=== PATIENT | female | born 1960 | race Caucasian/White ===

== ENCOUNTER 2016-10-30 07:32 | Emergency (ER) | payer OTHER ==
[~2016-10-30] VITALS: Ht 157.5 cm; Wt 114.0 kg
[2016-10-30 07:40] VITALS: Ht 157.5 cm; Wt 114.0 kg
[2016-10-30] MEDS ORDERED: METHYLPREDNISOLONE 125 MG VIAL IV STA (07:56)
[2016-10-30] MEDS ORDERED: ALBUT/IPRATROP 3MG/0.5MG NEB 3 ML VIAL INH STA (07:56)
[2016-10-30] MEDS ORDERED: ALBUT/IPRATROP 3MG/0.5MG NEB 3 ML VIAL ONE (07:57)
[2016-10-30] MEDS ORDERED: ALBUT/IPRATROP 3MG/0.5MG NEB 3 ML VIAL INH ONE (08:00)
[2016-10-30] MEDS ORDERED: ROSU40TA PO (08:02)
[2016-10-30] MEDS ORDERED: LEVO125T72 PO (08:02)
[2016-10-30 08:09] VITALS: PULSE 113; O2SAT 95
--- NOTE | 2016-10-30 08:13 | EMERGENCY ROOM VISIT NOTE ---
History Report prepared by Joe: Quincy Yanez Under the Supervision of: Dr. Hilda Flores M.D. First contact with patient: 07:46 Chief Complaint: RESPIRATORY PROBLEMS Stated Complaint: HAVING TROUBLE BREATHING History of Present Illness The patient is a 56 year old female who presents to the Emergency Room with complaints of worsening respiratory problems that occurred last night. The patient is having moderate shortness of breath currently. She has a past medical history of asthma. She states this is an exacerbation episode of her asthma. Last night, she used her inhaler with mild relief. She also used it this morning as well. She states that it does help, but it wears off quickly. She denies any fever or abdominal pain. She has bilateral pedal edema that is baseline. A couple weeks ago, she saw a television camera operator who gave her a chest x- ray that came back normal. She has never been intubated before. She does not have diabetes. She does not have any personal history of congestive heart failure, but she does have a family history of this condition. Source of History: patient Onset: last night Position: other (lungs) Symptom Intensity: moderate Quality: other (respiratory problems) Timing: worsening Associated Symptoms: + SOB, No abdominal pain, No fevers Note: She has a baseline bilateral pedal edema. Review of Systems See HPI for pertinent positives & negatives. A total of 10 systems reviewed and were otherwise negative. Past Medical & Surgical Medical Problems: (1) Asthma Family History Omitted secondary to age. Social History Smoking Status: Never Smoker Smokeless Tobacco Use: No Drug Use: none Marital Status: Housing Status: lives with significant other Occupation Status: employed Current/Historical Medications Scheduled Ergocalciferol (Vitamin D 67371 Unit), 50,000 UNIT PO WK Fluticasone Prop/Salmeterol (Advair Diskus 100/50 60 Dose), 1 PUFF INH DAILY Furosemide (Lasix), Unknown Dose PO WK Levothyroxine Sodium (Synthroid), 125 MCG PO DAILY Potassium Chloride (Micro-K Ext Rel), Unknown Dose PO WK Prednisone (Prednisone), Unknown Dose PO DAILY Sulfasalazine (Sulfazine Ec), 1,000 MG PO DAILY Scheduled PRN Albuterol Hfa (Ventolin Hfa), 1-2 PUFFS INH Q6H PRN for asthma symptoms Miscellaneous Medications Rosuvastatin Calcium (Crestor), 40 MG PO Allergies Coded Allergies: No Known Allergies (Unverified , 10/31/16) Physical Exam Vital Signs Date Time Temp Pulse Resp B/P Pulse Ox O2 Delivery O2 Flow Rate FiO2 10/30/16 11:32 101 22 137/88 96 10/30/16 10:05 108 21 130/75 94 Room Air 10/30/16 10:02 111 10/30/16 09:18 96 Room Air 10/30/16 09:04 108 22 143/86 100 Mask 6.0 10/30/16 08:45 95 Mask 6.0 10/30/16 08:12 115 10/30/16 08:09 113 26 95 Mask 6.0 10/30/16 08:01 115 24 171/110 96 Nebulizer 6.0 10/30/16 07:44 Nasal Cannula 2.0 10/30/16 07:40 36.5 122 26 149/89 93 Room Air Physical Exam Vital signs reviewed. General: Well-appearing obese female, with some acute discomfort. HEENT: No scleral icterus, PERRLA, neck supple. Atraumatic. Cardiovascular: Tachycardic rate with a normal rhythm, no extra sounds. Pulmonary: Diffuse wheezing, increased work of breathing. Abdomen: Soft, nontender, nondistended, positive bowel sounds. Musculoskeletal: Atraumatic, pitting bilateral lower extremity edema. Neurologic: Patient awake alert and oriented x 3, full strength in all 4 extremities. Cranial nerves 2 through 12 grossly intact. Skin: Warm, dry, no rash Medical Decision & Procedures ER Provider Diagnostic Interpretation: Radiology results as stated below per my review and radiologist interpretation: CHEST ONE VIEW PORTABLE CLINICAL HISTORY: asthma dyspnea COMPARISON STUDY: No previous studies for comparison. FINDINGS: The bones soft tissues and hemidiaphragms are normal. The cardiomediastinal silhouette is normal. The lungs are clear. The pulmonary vasculature is normal. Slight basilar interstitial prominence IMPRESSION: Slight basilar interstitial prominence. Study chest is otherwise negative Electronically signed by: Joel Adam M.D. 10/30/2016 8:16 AM Dictated Date/Time: 10/30/2016 8:15 AM CHEST CTA for PULMONARY ARTERIES CT DOSE: 627.54 mGy.cm HISTORY: Chest pain dyspnea TECHNIQUE: Multiaxial CT images of the chest were performed following the intravenous administration of contrast to evaluate the pulmonary arteries. Maximal intensity projection images were also obtained. COMPARISON STUDY: None. FINDINGS: There is a normal caliber thoracic aorta with no evidence for dissection. There is no evidence for pulmonary embolus. No pleural effusions. No pneumothorax. The liver and spleen are unremarkable. No mediastinal or hilar lymphadenopathy. The central airways are patent. The lungs are clear. IMPRESSION: No evidence for pulmonary embolus. Electronically signed by: Joel Adam M.D. 10/30/2016 10:57 AM Dictated Date/Time: 10/30/2016 10:55 AM Laboratory Results 10/30/16 08:40 Red Blood Count 4.54, Mean Corpuscular Volume 94.7, Mean Corpuscular Hemoglobin 31.3, Mean Corpuscular Hemoglobin Concent 33.0, Mean Platelet Volume 10.9, Neutrophils (%) (Auto) 55.0, Lymphocytes (%) (Auto) 25.1, Monocytes (%) (Auto) 10.8, Eosinophils (%) (Auto) 8.2, Basophils (%) (Auto) 0.6, Neutrophils # (Auto ) 4.29, Lymphocytes # (Auto) 1.96, Monocytes # (Auto) 0.84, Eosinophils # (Auto ) 0.64, Basophils # (Auto) 0.05 10/30/16 08:40 Test 10/30/16 08:40 10/30/16 08:42 White Blood Count 7.80 K/uL (4.8-10.8) Red Blood Count 4.54 M/uL (4.2-5.4) Hemoglobin 14.2 g/dL (12.0-16.0) Hematocrit 43.0 % (37-47) Mean Corpuscular Volume 94.7 fL (80-100) Mean Corpuscular Hemoglobin 31.3 pg (25-34) Mean Corpuscular Hemoglobin Concent 33.0 g/dl (32-36) Platelet Count 267 K/uL (130-400) Mean Platelet Volume 10.9 fL (7.4-10.4) Neutrophils (%) (Auto) 55.0 % Lymphocytes (%) (Auto) 25.1 % Monocytes (%) (Auto) 10.8 % Eosinophils (%) (Auto) 8.2 % Basophils (%) (Auto) 0.6 % Neutrophils # (Auto) 4.29 K/uL (1.4-6.5) Lymphocytes # (Auto) 1.96 K/uL (1.2-3.4) Monocytes # (Auto) 0.84 K/uL (0.11-0.59) Eosinophils # (Auto) 0.64 K/uL (0-0.5) Basophils # (Auto) 0.05 K/uL (0-0.2) RDW Standard Deviation 49.0 fL (36.4-46.3) RDW Coefficient of Variation 14.1 % (11.5-14.5) Immature Granulocyte % (Auto) 0.3 % Immature Granulocyte # (Auto) 0.02 K/uL (0.00-0.02) D-Dimer 810 ug/L FEU (0-500) Anion Gap 6.0 mmol/L (3-11) Est Creatinine Clear Calc Drug Dose 119.1 ml/min Estimated GFR () 116.2 Estimated GFR (Non- 100.3 BUN/Creatinine Ratio 23.4 (10-20) Calcium Level 9.8 mg/dl (8.5-10.1) Total Bilirubin 0.5 mg/dl (0.2-1) Direct Bilirubin 0.1 mg/dl (0-0.2) Aspartate Amino Transf (AST/SGOT) 15 U/L (15-37) Alanine Aminotransferase (ALT/SGPT) 21 U/L (12-78) Alkaline Phosphatase 85 U/L (45-117) Total Creatine Kinase 143 U/L (26-192) Creatine Kinase MB 2.2 ng/ml (0.5-3.6) Creatine Kinase MB Ratio 1.5 (0-3.0) Total Protein 7.5 gm/dl (6.4-8.2) Albumin 3.6 gm/dl (3.4-5.0) Bedside Troponin I 0.000 ng/ml (0-0.045) SB-Geq-F-Type Natriuretic Peptide 44 pg/ml (0-900) Laboratory results per my review. Medications Administered Medications (Trade) Dose Ordered Sig/Temo Route Start Time Stop Time Status Last Admin Dose Admin Albuterol/ Ipratropium (Duoneb) 3 ml NOW STAT INH 10/30/16 07:56 10/30/16 07:58 DC 10/30/16 08:00 3 ML Albuterol/ Ipratropium (Duoneb) 12 ml ONE ONCE INH 10/30/16 08:00 10/30/16 08:01 DC 10/30/16 08:01 12 ML Methylprednisolone Sodium Succinate (Solu-Medrol IV) 125 mg NOW STAT IV 10/30/16 07:56 10/30/16 07:58 DC 10/30/16 08:29 125 MG ECG Indication: SOB/dyspnea Rate (beats per minute): 115 Rhythm: sinus tachycardia Findings: no acute ischemic change, no ectopy ED Course 07: Past medical records reviewed. The patient was evaluated in room B12. A complete history and physical examination was performed. 0756: Ordered Solu-Medrol IV 125 mg IV, Duoneb 3 ml INH 0757: Ordered Duoneb 3 ml .ROUTE 0800: Ordered Duoneb 12 ml INH 0812: The patient is feeling better on the nebulizer. 1128: Upon reevaluation, the patient appeared to have improvement of her symptoms. I discussed findings with her. She verbalized agreement of the treatment plan. She was discharged home. Medical Decision Differential diagnosis: Etiologies such as infections, reactive airway disease, pneumonia, pneumothorax , COPD, CHF, cardiac ischemia, pulmonary embolism, musculoskeletal, gastrointestinal, as well as others were entertained. This patient was evaluated and appeared to be in some discomfort. IV access was obtained and laboratory work was drawn. The patient was placed on the astronomy department chair and found to be in a sinus tachycardia. Patient was given a DuoNeb treatment, she was given IV Solu-Medrol. Chest x-ray was obtained and reveals some interstitial prominence. Patient was given an hour-long DuoNeb treatment with good results. Laboratory work reveals a positive d-dimer, subsequent CT scan of the chest is negative for PE. She has symptoms the scattered wheezes after several hours of observation. At this time I feel the patient is stable. She would like to leave to go to her daughter's graduation. Patient was discharged with a prednisone taper. She has an albuterol inhaler. She will follow-up with her physician upon return home and will return to the ER for worsening of symptoms or any medical concerns. Impression Primary Impression: Asthma Scribe Attestation The scribe's documentation has been prepared under my direction and personally reviewed by me in its entirety. I confirm that the note above accurately reflects all work, treatment, procedures, and medical decision making performed by me. Departure Information Dispostion Home / Self-Care Referrals No Doctor Assigned Forms HOME CARE DOCUMENTATION FORM, IMPORTANT VISIT INFORMATION, WORK / SCHOOL INSTRUCTIONS Patient Instructions My [facility] Additional Instructions Diagnosis: Asthma exacerbation Prednisone 40 mg daily for 4 more days, 30 mg daily for 3 days, 20 mg daily for 2 more days, 10 mg daily for 2 days. Albuterol 2 puffs every 4 hours as needed for wheezing. Follow up with your doctor upon return home. Return to emergency for worsening of symptoms or any medical concerns. Problem Qualifiers Primary Impression: Asthma Asthma severity: mild intermittent Asthma complication type: with acute exacerbation Qualified Codes: J45.21 - Mild intermittent asthma with (acute) exacerbation
--- NOTE | 2016-10-30 08:17 | DIAGNOSTIC IMAGING REPORT ---
CHEST ONE VIEW PORTABLE CLINICAL HISTORY: asthma dyspnea COMPARISON STUDY: No previous studies for comparison. FINDINGS: The bones soft tissues and hemidiaphragms are normal. The cardiomediastinal silhouette is normal. The lungs are clear. The pulmonary vasculature is normal. Slight basilar interstitial prominence IMPRESSION: Slight basilar interstitial prominence. Study chest is otherwise negative Electronically signed by: Joel Adam M.D. 10/30/2016 8:16 AM Dictated Date/Time: 10/30/2016 8:15 AM
[2016-10-30] MEDS ORDERED: ERGO500037 PO (08:27)
[2016-10-30] MEDS ORDERED: SULF500T35 PO (08:27)
[2016-10-30] MEDS ORDERED: ADVIN10/60 INH (08:27)
[2016-10-30] MEDS ORDERED: VNTHFA/IN INH (08:27)
[2016-10-30] MEDS ORDERED: FURO-85 PO (08:27)
[2016-10-30] MEDS ORDERED: POTA10CA28 PO (08:27)
[2016-10-30 08:55] LABS: BASO % 0.6 %; BASO ABS # 0.05 K/uL (0-0.2); COMPLETE YES; EOS % 8.2 %; IG% 0.3 %; LYMPH % 25.1 %; LYMPH ABS # 1.96 K/uL (1.2-3.4); MEAN CELL VOLUME 94.7 fL (80-100); MEAN CORPUSCULAR HEMOGLOBIN 31.3 pg (25-34); MEAN PLATELET VOLUME 10.9 fL (7.4-10.4); MONO % 10.8 %; PLATELET COUNT 267 K/uL (130-400); RED BLOOD COUNT 4.54 M/uL (4.2-5.4)
[2016-10-30 09:22] LABS: BUN/CREATININE RATIO 23.4 (10-20); CALCIUM 9.8 mg/dl (8.5-10.1); CREATININE 0.63 mg/dl (0.60-1.20); POTASSIUM 3.9 mmol/L (3.5-5.1)
[2016-10-30 09:29] LABS: CKMB/CK RATIO 1.5 (0-3.0)
[2016-10-30] MEDS ORDERED: OPTIRAY 320 IV PRN (10:45)
--- NOTE | 2016-10-30 10:59 | DIAGNOSTIC IMAGING REPORT ---
CHEST CTA for PULMONARY ARTERIES CT DOSE: 627.54 mGy.cm HISTORY: Chest pain dyspnea TECHNIQUE: Multiaxial CT images of the chest were performed following the intravenous administration of contrast to evaluate the pulmonary arteries. Maximal intensity projection images were also obtained. COMPARISON STUDY: None. FINDINGS: There is a normal caliber thoracic aorta with no evidence for dissection. There is no evidence for pulmonary embolus. No pleural effusions. No pneumothorax. The liver and spleen are unremarkable. No mediastinal or hilar lymphadenopathy. The central airways are patent. The lungs are clear. IMPRESSION: No evidence for pulmonary embolus. Electronically signed by: Joel Adam M.D. 10/30/2016 10:57 AM Dictated Date/Time: 10/30/2016 10:55 AM
[2016-10-30] MEDS ORDERED: PRED10TA PO (11:24)
[2016-10-30 11:32] VITALS: BP 137/88; PULSE 101; O2SAT 96
[2016-10-31] MEDS ORDERED: PRD10 PO (04:53)
== END 2016-10-30 11:33 | disposition home or self-care (01) ==
LOC: C.EDB 07:34
DX: J45.21 Mild intermittent asthma with (acute) exacerbation (principal); R00.0 Tachycardia, unspecified; R60.0 Localized edema; Z79.899 Other long term (current) drug therapy

== ENCOUNTER 2016-10-31 04:11 | Emergency (ER) | payer OTHER ==
[~2016-10-31] VITALS: Ht 157.5 cm; Wt 106.0 kg
[~2016-10-31 04:11] MED LIST: ADVIN10/60 INH; ERGO500037 PO; FURO-85 PO; LEVO125T72 PO; POTA10CA28 PO; PRED10TA PO; ROSU40TA PO; SULF500T35 PO; VNTHFA/IN INH
[2016-10-31 04:13] VITALS: TEMP 36.3; Ht 157.5 cm; Wt 106.0 kg
[2016-10-31 04:23] VITALS: O2SAT 96
[2016-10-31] MEDS ORDERED: METHYLPREDNISOLONE 125 MG VIAL IV STA (04:26)
[2016-10-31] MEDS ORDERED: SODIUM CHLORIDE 0.9% 1000ML 1,000 ML IV ONE (04:30)
[2016-10-31] MEDS ORDERED: ALBUT/IPRATROP 3MG/0.5MG NEB 3 ML VIAL INH ONE (04:30)
[2016-10-31] MEDS ORDERED: PRD10 PO (04:53)
[2016-10-31] MEDS ORDERED: HYCODAN 60ML BOTTLE HOMEPACK PO ONE (07:00)
--- NOTE | 2016-10-31 07:10 | DIAGNOSTIC IMAGING REPORT ---
CHEST 2 VIEWS ROUTINE CLINICAL HISTORY: Asthma exacerbation. DIFFICULTY BREATHING COMPARISON STUDY: 10/30/2016 FINDINGS: The heart is the upper limits of normal in size. There is no focal pulmonary consolidation. There is no failure. There are no pleural effusions.[ IMPRESSION: No active disease in the chest. Electronically signed by: Mandeep Real M.D. 10/31/2016 7:09 AM Dictated Date/Time: 10/31/2016 7:08 AM
[2016-10-31] MEDS ORDERED: ACETAMINOPHEN 325 MG TAB ONE (08:04)
[2016-10-31 08:23] VITALS: BP 160/92; PULSE 103; O2SAT 99
--- NOTE | 2016-11-01 03:06 | EMERGENCY ROOM VISIT NOTE ---
History First contact with patient: 04:17 Chief Complaint: RESPIRATORY PROBLEMS Stated Complaint: CAN'T BREATHE Nursing Triage Summary: Patient reports difficulty breathing began in the middle of the night tonight. Patient reports she was seen here last night for same symptoms and was good throughout the day. Patient has been using Proair inhaler and started prednisone. History of Present Illness The patient is a 56 year old female who presents to the Emergency Room with complaints of cough and shortness of breath that began worsening one or 2 hours ago. The patient was seen about 20 hours ago with identical symptoms. She is in town for [facility], and does not live locally. At her visit earlier she had a negative cardiac workup and negative CT angiogram of her chest. She felt much better after steroids and inhalers. The patient was given a prescription for prednisone, and states that she did take 1 dose earlier today. She had been doing very well throughout graduation, and was able to walk around campus without difficulty. Now that she returned to where she is stating she is having exacerbation of her symptoms. The patient rates her discomfort a 5/10. She does have a history of asthma and is reportedly following with pulmonology back home. She has not had fever or chills. She does not report distinct chest pain. Her symptoms do improve with pro-air. Review of Systems More than 10 systems were reviewed and otherwise negative with the exception of history of present illness. Past Medical/Surgical History Medical Problems: (1) Asthma Family History No pertinent family history Social History Smoking Status: Never Smoker Drug Use: none Marital Status: Housing Status: lives with significant other Occupation Status: employed Current/Historical Medications Scheduled Ergocalciferol (Vitamin D 30438 Unit), 50,000 UNIT PO WK Fluticasone Prop/Salmeterol (Advair Diskus 100/50 60 Dose), 1 PUFF INH DAILY Furosemide (Lasix), Unknown Dose PO WK Levothyroxine Sodium (Synthroid), 125 MCG PO DAILY Potassium Chloride (Micro-K Ext Rel), Unknown Dose PO WK Prednisone (Prednisone), Unknown Dose PO DAILY Sulfasalazine (Sulfazine Ec), 1,000 MG PO DAILY Scheduled PRN Albuterol Hfa (Ventolin Hfa), 1-2 PUFFS INH Q6H PRN for asthma symptoms Miscellaneous Medications Rosuvastatin Calcium (Crestor), 40 MG PO Allergies Coded Allergies: No Known Allergies (Unverified , 10/31/16) Physical Exam Vital Signs Date Time Temp Pulse Resp B/P Pulse Ox O2 Delivery O2 Flow Rate FiO2 10/31/16 08:23 103 20 160/92 99 10/31/16 07:24 108 20 154/90 94 Room Air 10/31/16 06:21 115 24 168/97 93 Room Air 10/31/16 04:23 96 Nasal Cannula 10/31/16 04:20 94 Room Air 10/31/16 04:13 36.3 115 20 159/89 92 Room Air Pain Rating (0-10): 1.0 Physical Exam VITALS: Vitals are noted on the nurse's note and reviewed by myself. Vital signs stable. GENERAL: Well-developed, well-nourished, white female, who is cooperative and speaking in full sentences HEAD: Normocephalic atraumatic. EARS: External ear normal. External auditory canals clear, tympanic membranes pearly heath without erythema or effusion bilaterally. EYES: Pupils equal round and reactive to light and accommodation. Conjunctivae without injection, sclerae without icterus. Extraocular movements intact. NOSE: Patent, turbinates without inflammation or discharge. MOUTH: Mucous membranes moist. Tonsils are not enlarged. Pharynx without erythema, blood, or exudate. Uvula midline. Airway patent. NECK: Supple without nuchal rigidity. No lymphadenopathy. No thyromegaly. Cervical spine is nontender. HEART: Regular rate and rhythm without murmurs gallops or rubs. LUNGS: Coarse breath sounds with scattered rhonchi MUSCULOSKELETAL: No muscle atrophy, erythema, or edema noted. Full range of motion without joint tenderness in all extremities. Medical Decision & Procedures ER Provider Diagnostic Interpretation: CHEST 2 VIEWS ROUTINE CLINICAL HISTORY: Asthma exacerbation. DIFFICULTY BREATHING COMPARISON STUDY: 10/30/2016 FINDINGS: The heart is the upper limits of normal in size. There is no focal pulmonary consolidation. There is no failure. There are no pleural effusions.[ IMPRESSION: No active disease in the chest. Medications Administered Medications (Trade) Dose Ordered Sig/Temo Route Start Time Stop Time Status Last Admin Dose Admin Methylprednisolone Sodium Succinate 125 mg 125 mg NOW STAT IV 10/31/16 04:26 10/31/16 04:27 DC 10/31/16 04:26 125 MG Sodium Chloride (Nss 1000ml) 1,000 ml @ 999 mls/hr Q1H1M ONCE IV 10/31/16 04:30 10/31/16 05:30 DC 10/31/16 04:30 999 MLS/HR Albuterol/ Ipratropium (Duoneb) 12 ml NOW ONCE INH 10/31/16 04:30 10/31/16 04:31 DC 10/31/16 04:52 12 ML Hydrocodone Bit/ Homatropine Methylb (Hycodan Elix Homepack 5/1.5MG/ 5ML) 1 homepack UD ONCE PO 10/31/16 07:00 10/31/16 07:01 DC 10/31/16 08:01 1 HOMEPACK Acetaminophen (Tylenol Tab) 650 mg STK-MED ONCE .ROUTE 10/31/16 08:04 10/31/16 08:05 DC 10/31/16 08:06 650 MG ECG Change: Sinus tachycardia @112 bpm Prolonged QT Abnormal ECG When compared with ECG of 30-OCT-2016 08:04, UT interval has decreased Confirmed by GAMA JONES MD ([id number]) on 10/31/2016 12:26:54 PM ED Course Physical exam and history were performed. Nursing notes and EMR were reviewed. Patient appears to have symptoms consistent with an asthma exacerbation. The patient is currently saturating 92% on room air. She was seen less than 24 hours ago at this facility with similar complaints and did well with a breathing treatment and Solu-Medrol. Patient was given 125 mg IV Solu-Medrol here as well as a one-hour DuoNeb. Because of her symptoms I did elect to repeat a chest x-ray and EKG. EKG was sinus tachycardia without ST elevation. Chest x-ray does not show acute findings. The patient was monitored for several hours here in the emergency department. She did complain of some jittering after the DuoNeb, but this did calm down over the course of 1-2 hours. She symptomatically felt better with some oxygen , but after we removed this she maintains saturations of 98-99% on room air. She did breathe better and feel better after these interventions. It was not felt necessary to repeat blood work or additional imaging. I discussed options of care with the patient and family. The patient is concerned because she was 4 hours away, and is uneasy about driving home when she keeps having these exacerbations. I did offer to speak with the hospitalist for possible observation, but the patient did prefer discharge home , and this is reasonable. She does have pro-air and prednisone which she should continue. The patient does have a pulmonology follow-up back home, and should also see her primary care physician. She was certainly invited back to the ER with any new, worsening, or concerning symptoms. The chart was completed utilizing [employer] Speech Voice Recognition Software. Grammatical errors, random word insertions, pronoun errors, and incomplete sentences are an occasional consequence of this system due to software limitations, ambient noise, and hardware issues. Any formal questions or concerns about the content, text, or information contained within the body of this dictation should be directly addressed to the provider for clarification. . Medical Decision Differential diagnosis: Etiologies such as infections, reactive airway disease, pneumonia, pneumothorax , COPD, CHF, cardiac ischemia, pulmonary embolism, musculoskeletal, gastrointestinal, as well as others were entertained. Impression Primary Impression: Asthma exacerbation Departure Information Dispostion Home / Self-Care Condition GOOD Forms WORK / SCHOOL INSTRUCTIONS, HOME CARE DOCUMENTATION FORM, IMPORTANT VISIT INFORMATION Patient Instructions My [facility] Additional Instructions You were seen and evaluated today on an emergency basis only. This is not a substitute for, or an effort to provide, complete comprehensive medical care. It is not possible to recognize and treat all injuries or illnesses in a single emergency department visit. For this reason it is recommended that you followup with your primary care physician's week for ongoing care and evaluation. Continue your medications as prescribed You are welcome to return to the emergency department anytime with new, worsening, or concerning symptoms.
== END 2016-10-31 08:26 | disposition home or self-care (01) ==
LOC: C.EDB 04:12
DX: J45.901 Unspecified asthma with (acute) exacerbation (principal)